=== PATIENT | female | born 1990 | race Caucasian/White ===

== ENCOUNTER → 2018-05-02 | Outpatient (CLI) | payer OTHER ==
[2018-05-02 11:34] LABS: HCG, SERUM QUANTITATIVE 146 MIU/ML
== END ==
LOC: M LAB 10:41
DX: N92.6 Irregular menstruation, unspecified (principal)
CPT/HCPCS: 84702

== ENCOUNTER → 2018-05-04 | Outpatient (CLI) | payer OTHER ==
[2018-05-04 10:44] LABS: HCG, SERUM QUANTITATIVE 451 MIU/ML
== END ==
LOC: M LAB 09:30
DX: Z32.01 Encounter for pregnancy test, result positive (principal)
CPT/HCPCS: 84702

== ENCOUNTER → 2018-05-07 | Outpatient (CLI) | payer OTHER ==
[2018-05-07 10:53] LABS: HCG, SERUM QUANTITATIVE 1499 MIU/ML
== END ==
LOC: M LAB 09:22
DX: Z32.01 Encounter for pregnancy test, result positive (principal)
CPT/HCPCS: 84702

== ENCOUNTER → 2018-07-23 | Outpatient (REF) | payer OTHER ==
[2018-07-23 14:17] LABS: CHLAMYDIA DNA AMPLIFICATION NEGATIVE (NEGATIVE); GC DNA AMPLIFICATION NEGATIVE (NEGATIVE)
== END ==
LOC: M SMT 11:24
DX: Z34.82 Encounter for supervision of other normal pregnancy, second trimester (principal)

== ENCOUNTER → 2018-08-01 | Outpatient (CLI) | payer OTHER | LOC: M RAD 07:29 | DX: Z34.82 Encounter for supervision of other normal pregnancy, second trimester (principal); Z36.89 Encounter for other specified antenatal screening; Z3A.18 18 weeks gestation of pregnancy ==

== ENCOUNTER → 2018-08-21 | Outpatient (CLI) | payer OTHER | LOC: M RAD 11:30 | DX: O26.892 Other specified pregnancy related conditions, second trimester (principal); Z3A.20 20 weeks gestation of pregnancy | CPT/HCPCS: 76816 ==

== ENCOUNTER → 2018-10-12 | Outpatient (CLI) | payer OTHER ==
[2018-10-12 16:56] LABS: GLUCOSE CHALLENGE TEST 1 HOUR 129 MG/DL (LESS THAN 140)
[2018-10-12 17:03] LABS: HEMATOCRIT 30.8 % (36.0-47.0); HEMOGLOBIN 10.2 g/dl (12.0-15.5); MEAN CORPUSCULAR HEMOGLOBIN 28.3 pg (27.0-33.0); MEAN CORPUSCULAR HGB CONC 33.1 g/dl (32.0-36.5); MEAN CORPUSCULAR VOLUME 85.3 fl (80.0-96.0); PLATELET COUNT, AUTOMATED 415 10^3/uL (150-450); RED BLOOD COUNT 3.61 10^6/uL (4.00-5.40); WHITE BLOOD COUNT 7.9 10^3/uL (4.0-10.0)
[2018-10-15 11:31] LABS: RUBELLA IgG QUALITATIVE IMMUNE (IMMUNE)
== END ==
LOC: M WUC 10:11
PROVIDERS: ATTEND Advanced Practice Midwife
DX: Z34.82 Encounter for supervision of other normal pregnancy, second trimester (principal)
CPT/HCPCS: 36415; 82950; 85027; 86762; 86803; 86850; 86900; 86901; J2790

== ENCOUNTER → 2018-12-03 | Outpatient (REF) | payer OTHER | LOC: M LAB REF 13:12 | PROVIDERS: ATTEND Advanced Practice Midwife | DX: Z34.03 Encounter for supervision of normal first pregnancy, third trimester (principal); Z3A.00 Weeks of gestation of pregnancy not specified ==

== ENCOUNTER 2019-01-04 12:23 | Inpatient (IN) | payer BC, OTHER ==
[2019-01-04] VITALS (14 sets, daily range): BP systolic 103–131; BP diastolic 51–77
[~2019-01-04] VITALS: Ht 161.3 cm; Wt 107.5 kg
[2019-01-04] MEDS ORDERED: METF500T13 PO (12:45)
[2019-01-04] MEDS ORDERED: PRENTAB9 PO (12:45)
[2019-01-04] MEDS ORDERED: LACTATED RINGER'S 1000 ML IV STA (13:22)
[2019-01-04] MEDS ORDERED: miSOPROStol 50 MCG 1/2 TAB (S0191) PO ONE (13:30)
[2019-01-04 13:38] LABS: HEMATOCRIT 33.4 % (36.0-47.0); HEMOGLOBIN 10.9 g/dl (12.0-15.5); MEAN CORPUSCULAR HEMOGLOBIN 25.9 pg (27.0-33.0); MEAN CORPUSCULAR HGB CONC 32.6 g/dl (32.0-36.5); MEAN CORPUSCULAR VOLUME 79.3 fl (80.0-96.0); PLATELET COUNT, AUTOMATED 349 10^3/uL (150-450); RED BLOOD COUNT 4.21 10^6/uL (4.00-5.40); WHITE BLOOD COUNT 11.1 10^3/uL (4.0-10.0)
--- NOTE | 2019-01-04 13:39 | HPEPDOC ---
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 Has f/u to R/O kidney involvement next week Social History Marital Status: Family situation: Spouse/partner home Psychosocial History: No pertinent psych hx * Smoker: non-smoker Alcohol: Denies Drugs: denies Imunizations Tdap status: current Allergies Coded Allergies: SEASONAL ALLERGIES (Verified Allergy, Mild, 01/04/19) Coconut (Verified Allergy, Unknown, THROAT SWELLING , 01/04/19) Medications Scheduled Metformin HCl (Metformin HCl) 500 Mg Tablet, 500 MG PO DAILY No.137/Iron/Folic Acd ( Vitamin Tablet) 1 Each Tablet, 1 TAB PO DAILY Physical Examination Physical Examination GENERAL: Alert and oriented times three. BREAST: . ABDOMEN: Gravid and non-tender to touch. FETUS: Is vertex (VTX) by sterile vaginal examination (SVE), fetus is vertex (VTX) by Thai. HEART RATE: Regular rate and rhythm. LUNGS: Clear to auscultation (CTA). EXTREMITIES: No edema. No clonus. Deep tendon reflexes (DTRs) + 2. Laboratory Data 24H [facility] Laboratory Tests 2 01/04/19 12:51: Serology Scanned Report Hepatitis B Testing Pertinent Laboratoy Data Blood Type: O- RBC Antibody Screen: Negative HIV: Negative Hepatitis B: Negative Hepatitis C: Negative Rapid Plasma Reagin: Nonreactive Rubella: Immune Chlamydia/Gonorrhea: Negative Group B Streptococcus: Positive Quad Screen Test: Negative Glucose Tolerance Test: 129 Anatomy Ultrasound Ultrasound Date: Aug 01, 2018 Placenta Location: Posterior Normal Anatomy: Yes Placenta Previa: No Estimated Weight (grams): 210 (39%) Other Ultrasounds 05/14/18 dating +FH 6w6d 06/14/18 viability 11w1d +FH 06/28/18 NT 1.4mm, FH 143 08/21/18 F/U 331gm, 21%, FH 132, limited evaluation of posterior fossa, face, outflow tracts 12/03/18 Vertex presentation Steroid Therapy Steroid Therapy: No Vaginal Examination Dilation: 2cm (-3) Effacement: 80% Station: -2 Cervical Consistency: Soft Assessment Heart Rate (FHR): 135 Variability: Moderate Accelerations: Positive Tocometer Contractions: Yes Frequency: irregular Strength: palpated as mild Assessment/Plan Assessment Brenda is a 28-year-old (G)1 para (P)0-0-0-0 at 40+2 weeks by 6-week ultrasound. Presents to Labor and Delivery (L&D) for elective induction of labor at term. has been complicated by social issues RT partner's cancer diagnosis. Denies LOF, bleeding or regular UC. Fetus is active Plan Admit and orient per consult Dr Youssef Personal Trainer and consent. Diet: Regular. Group B Streptococcus (GBS) positive, treat in labor. Labs and intravenous (IV) per unit protocol. Counseled on misoprostol, Pitocin and induction of labor (IOL). Lactated Ringers (LR): Bolus 500 mL, then saline lock. Pt plans to labor ad robert Anticipate normal spontaneous delivery (). C-S as appropriate. Lucila Ruiz CNM Jan 04, 2019 13:39
[2019-01-04] MEDS ORDERED: PENICILLIN G POTASSIUM IV 5 MU in D5W MINI-BAG PLUS 100 ML IV STA (18:53)
[2019-01-04] MEDS ORDERED: OXYTOCIN DRIP 30 UNITS in APPROPRIATE DILUENT 1 EA IV SCH (19:15)
[2019-01-04] MEDS: LR 1,000 ML IV SCH (20:04)
--- NOTE | 2019-01-04 20:13 | IPNPDOC ---
Text Note Date of Service The patient was seen on 01/04/19. NOTE Reports mild irregular UC Difficult to monitor FH due to activity. Cat I when able to monitor SVE /-1, anterior Start pitocin once reassuring strip. GBS prophylaxis ordered Consider FSE VS,Fishbone, I+O VS, Fishbone, I+O Laboratory Tests 01/04/19 13:28 Red Blood Count 4.21, Mean Corpuscular Volume 79.3 L, Mean Corpuscular Hemoglobin 25.9 L, Mean Corpuscular Hemoglobin Concent 32.6, Red Cell Distribution Width 15.4 H Vital Signs Date Time Temp Pulse Resp B/P (MAP) Pulse Ox O2 Delivery O2 Flow Rate FiO2 01/04/19 18:36 98.7 81 18 126/65 (85) Lucila Ruiz CNM Jan 04, 2019 20:13
[2019-01-04] MEDS: PENICILLIN G POTASSIUM IV 2.5 MU in APPROPRIATE DILUENT 1 EA IV SCH (22:57)
[2019-01-05] VITALS (57 sets, daily range): BP systolic 100–186; BP diastolic 56–96
--- NOTE | 2019-01-05 01:47 | IPNPDOC ---
Text Note Date of Service The patient was seen on 01/05/19. NOTE Difficult to assess FH due to habitus UC irregular SVE 3-/-2, AROM clear fluid. FSE applied. VS,Fishbone, I+O VS, Fishbone, I+O Laboratory Tests 01/04/19 13:28 Red Blood Count 4.21, Mean Corpuscular Volume 79.3 L, Mean Corpuscular Hemoglobin 25.9 L, Mean Corpuscular Hemoglobin Concent 32.6, Red Cell Distribution Width 15.4 H Vital Signs Date Time Temp Pulse Resp B/P (MAP) Pulse Ox O2 Delivery O2 Flow Rate FiO2 01/04/19 18:36 98.7 81 18 126/65 (85) I&O- Last 24 Hours up to 6 AM 01/05/19 06:00 Intake Total 500 ml Balance 500 ml Lucila Ruiz CNM Jan 05, 2019 01:47
[2019-01-05] MEDS: PENICILLIN G POTASSIUM IV 2.5 MU in APPROPRIATE DILUENT 1 EA IV SCH ×5 (03:14→19:00)
[2019-01-05] MEDS: LR 1,000 ML IV SCH ×4 (03:14→13:41)
--- NOTE | 2019-01-05 04:27 | IPNPDOC ---
Text Note Date of Service The patient was seen on 01/05/19. NOTE FH 145, minimal variability with episodes of moderate Cat I-II UC 3-5 minutes apart Pt is very tense, declines epidural at this point Pitocin off for recovery VS,Fishbone, I+O VS, Fishbone, I+O Laboratory Tests 01/04/19 13:28 Red Blood Count 4.21, Mean Corpuscular Volume 79.3 L, Mean Corpuscular Hemoglobin 25.9 L, Mean Corpuscular Hemoglobin Concent 32.6, Red Cell Distribution Width 15.4 H Vital Signs Date Time Temp Pulse Resp B/P (MAP) Pulse Ox O2 Delivery O2 Flow Rate FiO2 01/04/19 18:36 98.7 81 18 126/65 (85) I&O- Last 24 Hours up to 6 AM 01/05/19 06:00 Intake Total 500 ml Balance 500 ml Lucila Ruiz CNM Jan 05, 2019 04:27
[2019-01-05] MEDS ORDERED: LR 800 ML IV ONE (07:45)
[2019-01-05] MEDS ORDERED: FENTANYL 2MCG/ML ROPIVACAINE 0.2% IN 0.9% NACL 100ML IVBAG As Ordered ONE (07:46)
[2019-01-05] MEDS: FENTANYL/ROPIVACAINE/NACL BAG 100 ML EPIDURAL SCH ×3 (08:50→19:45)
[2019-01-05] MEDS ORDERED: EPIDURAL COMMENT XX SCH (09:30)
[2019-01-05] MEDS ORDERED: EPIDURAL/PCA KEYS XX PRN (09:30)
[2019-01-05] MEDS ORDERED: REFRIGERATOR IV KEYS XX PRN (09:30)
[2019-01-05] MEDS ORDERED: NALOXONE INJ 0.4 MG/1 ML VIAL (J2310) IV PRN (09:30)
[2019-01-05] MEDS ORDERED: diphenhydrAMINE INJ 50MG/ML VIAL (J1200) IV PRN (09:30)
[2019-01-05] MEDS ORDERED: LACTATED RINGER'S 1000 ML IV PRN (09:30)
[2019-01-05] MEDS ORDERED: ONDANSETRON 4MG/2ML VIAL (J2405) IV PRN (09:30)
[2019-01-05] MEDS: ePHEDrine SULFATE 25 MG/5 ML(5MG/ML) SYRINGE IV PRN ×3 (15:57→16:07)
[2019-01-05] MEDS ORDERED: LIDOCAINE 1% MDV 20ML VIAL As Ordered ONE (22:36)
[2019-01-06] MEDS ORDERED: DOCUSATE SODIUM 100 MG CAP PO PRN
[2019-01-06] MEDS ORDERED: OXYTOCIN DRIP 30 UNITS in APPROPRIATE DILUENT 1 EA IV ONE ×2
[2019-01-06] MEDS ORDERED: LIDOCAINE 1% MDV 20ML VIAL INFIL ONE
[2019-01-06] MEDS ORDERED: ACETAMINOPHEN 500 MG TAB PO PRN
[2019-01-06] MEDS ORDERED: RHOGAM 300 MCG (1500 IU) INJ (J2790) IM SCH
[2019-01-06] MEDS ORDERED: ONDANSETRON 4MG/2ML VIAL (J2405) IV PRN
[2019-01-06] MEDS ORDERED: METHYLERGONOVINE MALEATE 0.2 MG TAB PO PRN
[2019-01-06] MEDS ORDERED: DIBUCAINE 1% OINTMENT 30GM TOP PRN
[2019-01-06] MEDS ORDERED: MEASLES,MUMPS,RUBELLA VACCINE INJ (MMR-II) (90707) SC SCH
[2019-01-06 01:10] VITALS: BP 121/65
[2019-01-06 06:00] VITALS: BP 98/56
[2019-01-06] MEDS ORDERED: LIDOCAINE 1% MDV 20ML VIAL SC ONE (06:15)
[2019-01-06] MEDS: PRENATAL VITAMINS CHEWABLE TABLET PO SCH (07:54)
--- NOTE | 2019-01-06 10:07 | DN ---
DATE: 01/05/2019 PREDELIVERY DIAGNOSIS: 40-2/7 weeks gestation labor induction. POSTDELIVERY DIAGNOSIS: Delivered. PROCEDURE: Spontaneous vaginal delivery. ASSISTANT RESEARCH SCIENTIST: Dr. Wyatt Youssef. ANESTHESIA: Epidural. ESTIMATED BLOOD LOSS: 300 mL. FINDINGS: A 8 pound 10 ounce 3900 gram male . 7 and 9. DELIVERY SUMMARY: After a 90 minute second stage, the patient had spontaneous delivery of an 8 pound 10 ounce mal . 7 and 9 under epidural anesthesia. There was no nuchal cord. The shoulders dystocia was encountered and this was relieved by Stover maneuver. The cried spontaneously. The cord was doubly clamped and cut. The placenta delivered spontaneously and appeared to be intact. The patient received IV pitocin immediately after delivery of the placenta. Second degree peroneal laceration was repaired with 2-0 Chromic under local anesthesia in the usual fashion. Sponge and needle counts were correct.
[2019-01-06 20:00] VITALS: BP 122/58
[2019-01-06] MEDS: IBUPROFEN 800 MG TAB PO PRN (21:06)
[2019-01-07 05:54] VITALS: BP 104/54
[2019-01-07] MEDS: PRENATAL VITAMINS CHEWABLE TABLET PO SCH (07:41)
[2019-01-07] MEDS: IBUPROFEN 800 MG TAB PO PRN (07:43)
[2019-01-07] MEDS ORDERED: IBUP200C33 PO (10:07)
[2019-01-07] MEDS ORDERED: ACET-683 PO (10:07)
== END 2019-01-07 12:15 | disposition home or self-care (01) | DRG 560 ==
LOC: M LDI 12:23 → M OBS 01-06 00:45
PROVIDERS: ADMIT Advanced Practice Midwife; ATTEND Advanced Practice Midwife
PROC: 3E033VJ Introduction of Other Hormone into Peripheral Vein, Percutaneous Approach (ICD-10-PCS; 2019-01-04)
PROC: 10E0XZZ Delivery of Products of Conception, External Approach (ICD-10-PCS; principal; 2019-01-05)
PROC: 0HQ9XZZ Repair Perineum Skin, External Approach (ICD-10-PCS; 2019-01-05)
DX: O48.0 Post-term pregnancy (principal); O99.820 Streptococcus B carrier state complicating pregnancy; Z37.0 Single live birth; Z3A.40 40 weeks gestation of pregnancy; O70.1 Second degree perineal laceration during delivery

== ENCOUNTER → 2019-11-15 | Outpatient (CLI) | payer BC ==
[~2019-11-15] MED LIST: ACET-683 PO; IBUP200C33 PO; METF500T13 PO; PRENTAB9 PO
--- NOTE | 2019-11-15 11:55 | REP ---
Clinical: Pain. Tendonitis. Technique: AP and lateral views of the left foot. Findings: Osseous structures, joint spaces, and surrounding soft tissues are normal. No soft tissue calcifications are identified. No arthritic changes noted. Impression: Normal left foot radiographs. Electronically Signed by Ghanshyam Griffin MD 11/15/2019 11:47 A
== END ==
LOC: M LRY 11:26
PROVIDERS: ATTEND Physician Assistant Medical
DX: M77.52 Other enthesopathy of left foot and ankle (principal)

== ENCOUNTER → 2019-12-17 | Outpatient (REF) | payer BC | LOC: M PLALAB 09:10 | PROVIDERS: ATTEND Specialist | DX: E28.2 Polycystic ovarian syndrome (principal) ==

== ENCOUNTER → 2019-12-18 | Outpatient (REF) | payer BC ==
[2019-12-18 14:06] LABS: FREE T4 0.93 NG/DL (0.76-1.46); THYROID STIMULATING HORMONE 1.89 uIU/ML (0.358-3.740)
[2019-12-18 14:07] LABS: FOLLICLE STIMULATING HORMONE 6.8 mIU/mL; LUTEINIZING HORMONE 8.5 mIU/mL
[2019-12-20 00:06] LABS: INSULIN LEVEL 74.9 uIU/mL (2.6-24.9); TESTOSTERONE FREE (DIRECT) 4.8 pg/mL (0.0-4.2)
== END ==
LOC: M PLALAB 11:01
PROVIDERS: ATTEND Specialist
DX: E28.2 Polycystic ovarian syndrome (principal)

== ENCOUNTER → 2019-12-31 | Outpatient (REF) | payer BC | LOC: M PLALAB 11:37 | PROVIDERS: ATTEND Specialist | DX: E28.2 Polycystic ovarian syndrome (principal) ==

== ENCOUNTER → 2020-01-07 | Outpatient (REF) | payer BC | LOC: M PLALAB 08:22 | PROVIDERS: ATTEND Specialist | DX: E28.2 Polycystic ovarian syndrome (principal) ==

== ENCOUNTER → 2020-01-07 | Outpatient (CLI) | payer BC ==
[2020-01-07 10:16] LABS: FOLLICLE STIMULATING HORMONE 7.4 mIU/mL; FREE T4 0.96 NG/DL (0.76-1.46); LUTEINIZING HORMONE 7.4 mIU/mL; PROLACTIN 6.4 NG/ML; THYROID STIMULATING HORMONE 2.43 uIU/ML (0.358-3.740)
[2020-01-07 10:26] LABS: HEMOGLOBIN A1c 6.1 %
[2020-01-09 00:13] LABS: INSULIN LEVEL 20.7 uIU/mL (2.6-24.9); TESTOSTERONE FREE (DIRECT) 7.1 pg/mL (0.0-4.2)
== END ==
LOC: M LAB 08:38
PROVIDERS: ATTEND Specialist
DX: E28.2 Polycystic ovarian syndrome (principal)

== ENCOUNTER → 2020-09-09 | Outpatient (REF) | payer BC ==
[2020-09-09 14:09] LABS: GLUCOSE CHALLENGE TEST 1 HOUR 111 MG/DL (LESS THAN 140)
[2020-09-09 14:10] LABS: HEMATOCRIT 38.5 % (36.0-47.0); HEMOGLOBIN 12.4 g/dl (12.0-15.5); MEAN CORPUSCULAR HEMOGLOBIN 28.4 pg (27.0-33.0); MEAN CORPUSCULAR HGB CONC 32.2 g/dl (32.0-36.5); MEAN CORPUSCULAR VOLUME 88.1 fl (80.0-96.0); PLATELET COUNT, AUTOMATED 317 10^3/uL (150-450); RED BLOOD COUNT 4.37 10^6/uL (4.00-5.40)
[2020-09-09 14:45] LABS: HEMOGLOBIN A1c 5.7 %
[2020-09-09 15:07] LABS: HEPATITIS C VIRUS ABY INDEX 0.1 INDEX (<0.8); HIV 1&2 SCREEN CENTAUR NEGATIVE (NEGATIVE)
== END ==
LOC: M PLALAB 10:04
PROVIDERS: ATTEND Obstetrics & Gynecology
DX: Z3A.01 Less than 8 weeks gestation of pregnancy (principal)

== ENCOUNTER → 2020-10-19 | Outpatient (CLI) | payer BC | LOC: M PLALAB 11:32 | PROVIDERS: ATTEND Advanced Practice Midwife | DX: Z34.82 Encounter for supervision of other normal pregnancy, second trimester (principal); Z3A.00 Weeks of gestation of pregnancy not specified ==

== ENCOUNTER → 2020-10-27 | Outpatient (CLI) | payer BC ==
--- NOTE | 2020-10-27 16:26 | REP ---
INDICATION: ANATOMY COMPARISON: None. TECHNIQUE: Transabdominal obstetrical ultrasound with color Doppler evaluation. FINDINGS: Examination demonstrates a single live intrauterine in breech presentation. motion is identified by technologist. Placenta is noted anterior and grade 1 without evidence for placenta previa or abruption. Amniotic fluid volume is normal. Cervix measures 3.1 cm in length and appears closed.. Gestational age by current measurements 18 weeks 1 day with HALEY 03/29/2021. FHR equals 163 beats per minute. BPD: 3.8 cm 17 weeks 5 days HC: 15.5 cm 18 weeks 3 days AC: 12.1 cm 17 weeks 5 days FL: 2.7 cm 18 weeks 2 days HL: 2.7 cm 18 weeks 5 days HC/AC: 1.28 Estimated weight 220 grams (37thpercentile). Anatomical assessment demonstrates normal structures including cranium, choroid plexus, cavum, cerebellum/posterior fossa, lungs, ventricular outflow tracts, diaphragm, stomach, cord insertion/three-vessel cord, kidneys/bladder, spine, and extremities. IMPRESSION: Single live intrauterine in breech presentation demonstrating appropriate estimated weight. Limited evaluation of the facial features and four-chamber heart view warrants re-evaluation and follow-up. <Electronically signed by Ghanshyam Griffin > 10/27/20 [id number]
== END ==
LOC: M WHC 08:59
PROVIDERS: ATTEND Advanced Practice Midwife
DX: O32.1XX0 Maternal care for breech presentation, not applicable or unspecified (principal); Z3A.18 18 weeks gestation of pregnancy

== ENCOUNTER → 2020-11-16 | Outpatient (CLI) | payer BC | LOC: M WHC 08:23 | PROVIDERS: ATTEND Obstetrics & Gynecology | DX: Z34.82 Encounter for supervision of other normal pregnancy, second trimester (principal); Z3A.21 21 weeks gestation of pregnancy; Z53.9 Procedure and treatment not carried out, unspecified reason ==

== ENCOUNTER 2020-11-20 16:41 | Outpatient (CLI) | payer BC ==
[~2020-11-20] VITALS: Ht 160 cm; Wt 100.4 kg
[2020-11-20 17:06] VITALS: BP 118/56
--- NOTE | 2020-11-20 17:36 | IPNPDOC ---
Text Note Date of Service The patient was seen on 11/20/20. NOTE Outpatient 30yo HALEY 03/27/2021. Presents at 21w6d with reports of bleeding on wipe x 3 today. Denies recent IC, no cramping, no LOF. No apparent distress FH 145-150 No Uterine activity. Spec exsm - cervix visually LTC, no bleeding noted. Moderate creamy white discharge pH 4.5, moderate hyphae, neg clue, neg amines TVUS ordered. Urine for C&S. rec monistat 7 as directed. Lucila Ruiz CNM Nov 20, 2020 17:36
--- NOTE | 2020-11-20 18:24 | REPVR ---
PROCEDURE INFORMATION: Exam: US , Limited Exam date and time: 11/20/2020 5:57 PM Age: 30 years old Clinical indication: Lmp or gestational age (in weeks): 21 weeks 6 days; Other: Spotting; ; Additional info: 2nd trimester spotting TECHNIQUE: Imaging protocol: Real-time ultrasound of the maternal uterus with image documentation. Exam focused on the clinical indication. COMPARISON: OBS COMPLETE US 10/27/2020 9:20 AM FINDINGS: Gestation: Single intrauterine gestation. presentation: Cephalic heart rate: 152 bpm Placenta: Anterior and free of the cervical os. No retroplacental hemorrhage Amniotic fluid index: Amniotic fluid index = 14.8 cm MATERNAL: Cervix: Measures 3.6 cm in length and appeared closed at the time of the examination. Right adnexa: Right ovary not seen as a separate structure. Left adnexa: Left ovary not seen as a separate structure IMPRESSION: 1. Single live intrauterine gestation. No retroplacental hemorrhage. Normal amniotic fluid index. 2. biometry not performed Electronically signed by: Jaimee Barrios On 11/20/2020 18:25:18 PM
--- NOTE | 2020-11-20 18:26 | REPVR ---
PROCEDURE INFORMATION: Exam: US , Transvaginal Exam date and time: 11/20/2020 5:57 PM Age: 30 years old Clinical indication: Lmp or gestational age (in weeks): 21 weeks 6 days; Other: Spotting; ; Additional info: 2nd trimester spotting, cervical length, placenta TECHNIQUE: Imaging protocol: Real-time transvaginal obstetrical ultrasound of the maternal pelvis and a first trimester with image documentation. Transvaginal imaging was used for better evaluation of the fetus, adnexa, and/or cervix. COMPARISON: Obs. Limited, SPENCER US 11/20/2020 5:42 PM FINDINGS: Gestation: Single Intrauterine gestation. presentation: Cephalic MATERNAL: Cervix: 3.5 cm in length and closed at the time of the examination. No change in the length of the cervix noted with or without fundal pressure IMPRESSION: 1. Single intrauterine gestation. 2. The cervix is closed with no evidence of effacement. No change in cervical length with fundal pressure. Electronically signed by: Jaimee Barrios On 11/20/2020 18:27:02 PM
[2020-11-20 19:07] VITALS: BP 109/59
--- NOTE | 2020-11-20 19:40 | IPNPDOC ---
Text Note Date of Service The patient was seen on 11/20/20. NOTE Ultrasound reassuring. No evidence of hemorrhage Cervix 3.6cm, closed. No evidence low lying placenta SPENCER 14.8cm heart 150's -160's Pt is reassured. Discharged home. Rec monistat 7. Keep next appt VS,Fishbone, I+O VS, Fishbone, I+O Vital Signs Date Time Temp Pulse Resp B/P (MAP) Pulse Ox O2 Delivery O2 Flow Rate FiO2 11/20/20 19:07 99.4 73 18 109/59 (76) 98 Room Air Lucila Ruiz CNM Nov 20, 2020 19:40
== END 2020-11-20 19:43 | disposition home or self-care (01) ==
LOC: M LDO 16:41
PROVIDERS: ATTEND Advanced Practice Midwife
DX: O26.852 Spotting complicating pregnancy, second trimester (principal); Z3A.21 21 weeks gestation of pregnancy; Z91.018 Allergy to other foods
CPT/HCPCS: 59025; 76815; 76817; 87086; G0378; G0463

== ENCOUNTER → 2020-12-01 | Outpatient (CLI) | payer BC ==
--- NOTE | 2020-12-01 10:31 | REP ---
INDICATION: F/U ANATOMY. COMPARISON: Comparison imaging November 20, 2020. Comparison study October 27, 2020.. TECHNIQUE: Transabdominal obstetric sonography. FINDINGS: Scanning through the gravid uterus demonstrates a viable single intrauterine gestation in breech lie. motion is observed and heart rate is recorded at 155 beats per minute. A anterior placenta is seen, grade 1, without evidence of placenta previa. Closed cervical length is measured at 3.3 cm transabdominally. No extrauterine abnormality is observed. Amniotic fluid is subjectively normal. An echogenic focus is again identified in the left ventricle. No other abnormality is observed. The following anatomic structures are identified today and felt to be unremarkable: Face and profile, nose and lips, urinary bladder, three-vessel cord. Four-chamber heart view is otherwise unremarkable.. Biometry chart: BPD 5.4 cm, 22 weeks 4 days Head circumference 21.5 cm, 23 weeks 4 days Abdominal circumference 19.5 cm, 24 weeks 1 day Femur length 3.9 cm, 22 weeks 4 days Humeral length 4.0 cm, 24 weeks 1 day HC AC ratio normal 1.10 Cephalic index normal 0.68 Estimated weight 601 g, 1 lb 5 oz, 60th percentile for 23 weeks 1 day IMPRESSION: Viable single intrauterine gestation at 23 weeks 3 days by today's composite sonographic criteria. HALEY by today's sonography March 27, 2021. No complication identified. Expected gestational age estimate based on prior sonography is 23 weeks 1 day HALEY by prior sonography March 29, 2021. In conjunction with the prior study, anatomic survey is felt to be complete. 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 <Electronically signed by Ellis Cho > 12/01/20 1024
== END ==
LOC: M WHC 08:29
PROVIDERS: ATTEND Obstetrics & Gynecology
DX: Z34.92 Encounter for supervision of normal pregnancy, unspecified, second trimester (principal); Z3A.23 23 weeks gestation of pregnancy

== ENCOUNTER → 2020-12-14 | Outpatient (REF) | payer BC | LOC: M PLALAB 10:02 | PROVIDERS: ATTEND Obstetrics & Gynecology | DX: Z3A.25 25 weeks gestation of pregnancy (principal) ==

== ENCOUNTER → 2020-12-25 | Outpatient (REF) | payer BC ==
[2020-12-25 15:19] LABS: HEMATOCRIT 35.9 % (36.0-47.0); HEMOGLOBIN 11.6 g/dl (12.0-15.5); MEAN CORPUSCULAR HEMOGLOBIN 28.5 pg (27.0-33.0); MEAN CORPUSCULAR HGB CONC 32.3 g/dl (32.0-36.5); MEAN CORPUSCULAR VOLUME 88.2 fl (80.0-96.0); PLATELET COUNT, AUTOMATED 373 10^3/uL (150-450); RED BLOOD COUNT 4.07 10^6/uL (4.00-5.40); WHITE BLOOD COUNT 10.3 10^3/uL (4.0-10.0)
== END ==
LOC: M PLALAB 11:38
PROVIDERS: ATTEND Obstetrics & Gynecology
DX: Z36.89 Encounter for other specified antenatal screening (principal); Z3A.35 35 weeks gestation of pregnancy

== ENCOUNTER → 2020-12-29 | Outpatient (REF) | payer BC | LOC: M PLALAB 08:30 | PROVIDERS: ATTEND Obstetrics & Gynecology | DX: O99.810 Abnormal glucose complicating pregnancy (principal) ==

== ENCOUNTER → 2020-12-30 | Outpatient (REF) | payer BC | LOC: M PLALAB 09:06 | PROVIDERS: ATTEND Obstetrics & Gynecology | DX: O99.810 Abnormal glucose complicating pregnancy (principal); Z3A.00 Weeks of gestation of pregnancy not specified ==

== ENCOUNTER → 2020-12-31 | Outpatient (REF) | payer BC | LOC: M PLALAB 13:34 | PROVIDERS: ATTEND Obstetrics & Gynecology | DX: R73.09 Other abnormal glucose (principal); Z53.9 Procedure and treatment not carried out, unspecified reason ==

== ENCOUNTER → 2021-01-28 | Outpatient (CLI) | payer BC ==
--- NOTE | 2021-01-28 11:57 | REP ---
INDICATION: STAT BPP,INCONCLUSIVE NST. HALEY March 29, 2021. Thirty-one weeks 3 days gestation. COMPARISON: Comparison study January 20, 2021.. TECHNIQUE: Transabdominal obstetric sonography, limited exam. FINDINGS: Scanning through the gravid uterus demonstrates a viable single intrauterine gestation in a cephalic lie. heart rate is recorded at 156 beats per minute. And anterior grade 2 placenta is seen without evidence of placenta previa. Amniotic fluid is subjectively normal. SPENCER is normal at 12.5 cm. Biophysical profile score is 8 out of a possible 8. SD ratio in the umbilical cord artery by Doppler is normal at 2.00. Closed cervical length is 3.3 cm. heart rate of the a end of the examination was recorded at 156 beats per minute. IMPRESSION: Limited obstetric sonography as above. <Electronically signed by Ellis Cho > 01/28/21 [id number]
== END ==
LOC: M WHC 10:33
PROVIDERS: ATTEND Advanced Practice Midwife
DX: O24.313 Unspecified pre-existing diabetes mellitus in pregnancy, third trimester (principal); Z3A.31 31 weeks gestation of pregnancy

== ENCOUNTER → 2021-01-28 | Outpatient (REF) | payer BC ==
[2021-01-28 16:14] LABS: HEMOGLOBIN A1c 5.6 %
== END ==
LOC: M PLALAB 11:17
PROVIDERS: ATTEND Advanced Practice Midwife
DX: O24.319 Unspecified pre-existing diabetes mellitus in pregnancy, unspecified trimester (principal); Z3A.00 Weeks of gestation of pregnancy not specified

== ENCOUNTER → 2021-02-03 | Outpatient (CLI) | payer BC ==
--- NOTE | 2021-02-05 01:50 | REP ---
INDICATION: GROWTH/HALEY 03/27/21/BPP COMPARISON: 01/28/2021 TECHNIQUE: Transabdominal obstetrical ultrasound with color Doppler evaluation. FINDINGS: Examination demonstrates a single live intrauterine in cephalic presentation. motion is identified by technologist. Placenta is noted anterior and grade 2 without evidence for placenta previa or abruption. Amniotic fluid volume is normal. Cervix measures 3.3 cm in length and appears closed.. Gestational age by LMP 32 weeks 4 days with HALEY 03/27/2021. Gestational age by 1st ultrasound 32 weeks 2 days with HALEY 03/29/2021. FHR equals 146 beats per minute. Biophysical profile score: 8/8 Amniotic fluid index: 17.3 cm Umbilical artery SD ratio: 2.32 (1.83-3.84) IMPRESSION: Single live advanced gestation in cephalic presentation. Biophysical profile score and amniotic fluid volume are normal. <Electronically signed by Ghanshyam Griffin > 02/05/21 [id number]
== END ==
LOC: M WHC 11:06
PROVIDERS: ATTEND Advanced Practice Midwife
DX: O24.419 Gestational diabetes mellitus in pregnancy, unspecified control (principal); O24.319 Unspecified pre-existing diabetes mellitus in pregnancy, unspecified trimester; N64.9 Disorder of breast, unspecified

== ENCOUNTER → 2021-02-04 | Outpatient (REF) | payer BC | LOC: M SFHCWAGY 17:19 | PROVIDERS: ATTEND Surgery | DX: L82.1 Other seborrheic keratosis (principal) ==

== ENCOUNTER → 2021-02-05 | Outpatient (REF) | payer BC | LOC: M PLALAB 09:22 | PROVIDERS: ATTEND Obstetrics & Gynecology | DX: Z67.91 Unspecified blood type, Rh negative (principal) | CPT/HCPCS: 36415; 86850; 86900; 86901; J2790 ==

== ENCOUNTER → 2021-02-10 | Outpatient (CLI) | payer BC ==
--- NOTE | 2021-02-10 10:55 | REP ---
INDICATION: BPP/GROWTH/HALEY 03/27/21 COMPARISON: 02/03/2021 TECHNIQUE: Transabdominal obstetrical ultrasound with color Doppler evaluation. FINDINGS: Examination demonstrates a single live intrauterine in cephalic presentation. motion is identified by technologist. Placenta is noted anterior and grade 2 without evidence for placenta previa or abruption. Amniotic fluid volume is normal. Cervix appears closed.. Gestational age by 1st U/S 33 weeks 2 days with HALEY 03/29/2021. Gestational age by current measurements 33 weeks 4 days with HALEY 03/27/2021. FHR equals 150 beats per minute. SPENCER: 11.0 cm Biophysical profile score: 8/8 Estimated weight 2164 grams (42ndpercentile). Umbilical artery SD ratio: 2.00 (1.77-3.74) IMPRESSION: Single live advanced gestation in cephalic presentation demonstrating appropriate estimated weight. Amniotic fluid volume and biophysical profile score are normal. <Electronically signed by Ghanshyam Griffin > 02/10/21 [id number]
== END ==
LOC: M WHC 09:54
PROVIDERS: ATTEND Advanced Practice Midwife
DX: O24.419 Gestational diabetes mellitus in pregnancy, unspecified control (principal)

== ENCOUNTER → 2021-02-17 | Outpatient (CLI) | payer BC ==
--- NOTE | 2021-02-17 12:34 | REP ---
INDICATION: DIABETES/BPP COMPARISON: 02/10/2021 TECHNIQUE: Transabdominal obstetrical ultrasound with color Doppler evaluation. FINDINGS: Examination demonstrates a single live intrauterine in cephalic presentation. motion is identified by technologist. Placenta is noted anterior and grade 2 without evidence for placenta previa or abruption. Amniotic fluid volume is normal. Cervix measures 3.0 cm in length and appears closed.. Gestational age by 1st ultrasound 34 weeks 2 days with HALEY 03/29/2021 FHR equals 170 beats per minute. SPENCER: 12.3 cm Biophysical profile score: 8/8 Umbilical artery SD ratio: 2.34, 1.98 (1.72-3.65) IMPRESSION: Single live advanced gestation in cephalic presentation demonstrating appropriate amniotic fluid index and biophysical profile score. <Electronically signed by Ghanshyam Griffin > 02/17/21 [id number]
== END ==
LOC: M WHC 10:46
PROVIDERS: ATTEND Advanced Practice Midwife
DX: O24.319 Unspecified pre-existing diabetes mellitus in pregnancy, unspecified trimester (principal); Z3A.00 Weeks of gestation of pregnancy not specified

== ENCOUNTER → 2021-02-24 | Outpatient (CLI) | payer BC ==
--- NOTE | 2021-02-24 10:29 | REP ---
INDICATION: BPP/DIABETES/HALEY 03/27/21 COMPARISON: 02/17/2021 TECHNIQUE: Transabdominal obstetrical ultrasound with color Doppler evaluation. FINDINGS: Examination demonstrates a single live intrauterine in cephalic presentation. motion is identified by technologist. Placenta is noted anterior and grade 3 without evidence for placenta previa or abruption. Amniotic fluid volume is normal. Cervix appears closed.. Gestational age by 1st U/S 35 weeks 2 days with HALEY 03/29/2021. FHR equals 163 beats per minute. Biophysical profile score: 8/8 SPENCER: 9.8 cm Umbilical artery SD ratio: 1.96 (1.67-3.57) IMPRESSION: Single live advanced gestation in cephalic presentation. Amniotic fluid index and biophysical profile score are normal. <Electronically signed by Ghanshyam Griffin > 02/24/21 [id number]
== END ==
LOC: M WHC 08:51
PROVIDERS: ATTEND Advanced Practice Midwife
DX: O24.319 Unspecified pre-existing diabetes mellitus in pregnancy, unspecified trimester (principal); Z3A.00 Weeks of gestation of pregnancy not specified; Z79.84 Long term (current) use of oral hypoglycemic drugs

== ENCOUNTER → 2021-02-26 | Outpatient (REF) | payer BC | LOC: M SFHCWAGY 12:10 | PROVIDERS: ATTEND Advanced Practice Midwife | DX: O24.419 Gestational diabetes mellitus in pregnancy, unspecified control (principal) ==

== ENCOUNTER → 2021-03-03 | Outpatient (CLI) | payer BC ==
--- NOTE | 2021-03-03 10:53 | REP ---
INDICATION: GESTATIONAL DIABETES,GROWTH,BPP COMPARISON: 02/24/2021 TECHNIQUE: Transabdominal obstetrical ultrasound with color Doppler evaluation. FINDINGS: Examination demonstrates a single live intrauterine in cephalic presentation. motion is identified by technologist. Placenta is noted anterior and grade 2 without evidence for placenta previa or abruption. Amniotic fluid volume is normal. Cervix measures 3.5 cm in length and appears closed. There is. Selected gestational age: 36 weeks 2 days with HALEY 03/29/2021. Gestational age by current measurements 36 weeks 4 days with HALEY 03/27/2021. Estimated weight: 2995 g (68th percentile) FHR equals 160 beats per minute. PSENCER: 13.7 cm (7.6-24.8) Biophysical profile score: 8/8 Umbilical artery SD ratio: 3.05, 2.71 (1.63 - 3.49) IMPRESSION: Single live intrauterine in cephalic presentation demonstrating appropriate interval growth. Amniotic fluid index and biophysical profile score are normal. <Electronically signed by Ghanshyam Griffin > 03/03/21 [id number]
== END ==
LOC: M WHC 09:58
PROVIDERS: ATTEND Advanced Practice Midwife
DX: O24.319 Unspecified pre-existing diabetes mellitus in pregnancy, unspecified trimester (principal)

== ENCOUNTER → 2021-03-10 | Outpatient (CLI) | payer BC ==
--- NOTE | 2021-03-11 09:08 | REP ---
INDICATION: BPP/DIABETES COMPARISON: 03/03/2021 TECHNIQUE: Transabdominal obstetrical ultrasound with color Doppler evaluation. FINDINGS: Examination demonstrates a single live intrauterine in cephalic presentation. motion is identified by technologist. Placenta is noted anterior and grade 2 without evidence for placenta previa or abruption. Amniotic fluid volume is normal. Cervix measures 3.4 cm in length and appears closed.. Selected gestational age: 37 weeks 2 days with HALEY 03/29/2021. FHR equals 150 beats per minute. SPENCER: 16.4 cm Biophysical profile score: 8/8 Umbilical artery SD ratio: 2.10, 1.75 (1.58-3.41) IMPRESSION: Single live advanced gestation in cephalic presentation. Amniotic fluid volume and biophysical profile score are normal. <Electronically signed by Ghanshyam Griffin > 03/11/21 09
== END ==
LOC: M WHC 10:02
PROVIDERS: ATTEND Advanced Practice Midwife
DX: O24.313 Unspecified pre-existing diabetes mellitus in pregnancy, third trimester (principal); Z3A.37 37 weeks gestation of pregnancy

== ENCOUNTER 2021-03-12 11:23 | Outpatient (CLI) | payer BC ==
[~2021-03-12] VITALS: Ht 160 cm; Wt 104.4 kg
[2021-03-12 11:49] VITALS: BP 119/76
[2021-03-12] MEDS ORDERED: METF500T13 PO (12:18)
--- NOTE | 2021-03-12 12:35 | IPNPDOC ---
Text Note Date of Service The patient was seen on 03/12/21. NOTE Outpatient 30yo HALEY 03/27/2021. Presents from office @ 37w6d for monitoring. NST in office showed prolonged tachycardia No distress, VSS Cat I tracing Rare mild UC not perceive by patient. Discharged home. Instructed to make appt for next week. Scheduled for IOL next Monday. After hours access, VASQUEZ, daily [facility], warnings reviewed. VS,Fishbone, I+O VS, Fishbone, I+O Vital Signs Date Time Temp Pulse Resp B/P (MAP) Pulse Ox O2 Delivery O2 Flow Rate FiO2 03/12/21 11:49 99.3 92 18 119/76 (90) Lucila Ruiz CNM Mar 12, 2021 12:35
== END 2021-03-12 12:43 | disposition home or self-care (01) ==
LOC: M LDO 11:23
PROVIDERS: ATTEND Advanced Practice Midwife
DX: O36.8330 Maternal care for abnormalities of the fetal heart rate or rhythm, third trimester, not applicable or unspecified (principal); Z3A.37 37 weeks gestation of pregnancy; Z79.84 Long term (current) use of oral hypoglycemic drugs

== ENCOUNTER → 2021-03-15 | Outpatient (CLI) | payer BC | LOC: M LABSMTC 13:53 | PROVIDERS: ATTEND Specialist | DX: Z20.822 Contact with and (suspected) exposure to COVID-19 (principal) ==

== ENCOUNTER → 2021-03-17 | Outpatient (CLI) | payer BC ==
--- NOTE | 2021-03-17 13:16 | REP ---
INDICATION: DIABETES,BPP. COMPARISON: Comparison study March 10, 2021.. TECHNIQUE: Transabdominal obstetric sonography. Limited exam. FINDINGS: Scanning demonstrates a viable single intrauterine gestation in a cephalic lie. heart rate is recorded at 165 beats per minute. An anterior grade 3 placenta is seen without evidence of previa. Amniotic fluid is subjectively normal. SPENCER is normal at 13.3 cm. Biophysical profile score is 8 out of a possible 8. The SD ratio in the umbilical cord artery by Doppler is normal at 1.96. IMPRESSION: Limited obstetric sonography as above. Biophysical profile score 8 out of a possible 8. <Electronically signed by Ellis Cho > 03/17/21 [id number]
== END ==
LOC: M WHC 09:49
PROVIDERS: ATTEND Advanced Practice Midwife
DX: O24.319 Unspecified pre-existing diabetes mellitus in pregnancy, unspecified trimester (principal)

== ENCOUNTER 2021-03-19 12:14 | Inpatient (IN) | payer BC ==
[~2021-03-19] VITALS: Ht 160 cm; Wt 104.2 kg
[2021-03-19] VITALS (8 sets, daily range): BP systolic 115–141; BP diastolic 63–82
[2021-03-19] MEDS: LACTATED RINGER'S 1000 ML IV STA ×2 (12:34→16:04)
[2021-03-19] MEDS ORDERED: LR 1,000 ML IV SCH ×2 (12:35→16:50)
[2021-03-19] MEDS ORDERED: OXYTOCIN DRIP 30 UNITS in IV 1 EA IV PRN (12:35)
[2021-03-19] MEDS ORDERED: METHYLERGONOVINE MALEATE 0.2 MG/ML VIAL (J2210) IM PRN (12:35)
[2021-03-19] MEDS ORDERED: LIDOCAINE 1% MDV 20ML VIAL INFIL PRN (12:35)
[2021-03-19 13:17] LABS: HEMATOCRIT 34.4 % (36.0-47.0); HEMOGLOBIN 11.2 g/dl (12.0-15.5); MEAN CORPUSCULAR HGB CONC 32.6 g/dl (32.0-36.5); MEAN CORPUSCULAR VOLUME 82.9 fl (80.0-96.0); PLATELET COUNT, AUTOMATED 340 10^3/uL (150-450); RED BLOOD COUNT 4.15 10^6/uL (4.00-5.40); WHITE BLOOD COUNT 8.8 10^3/uL (4.0-10.0)
[2021-03-19 13:44] LABS: ALBUMIN 2.7 GM/DL (3.2-5.2); ALT/SGPT 18 U/L (12-78); BILIRUBIN,TOTAL 0.2 MG/DL (0.2-1.0); BLOOD UREA NITROGEN 8 MG/DL (7-18); CALCIUM LEVEL 8.6 MG/DL (8.5-10.1); CARBON DIOXIDE LEVEL 22 MEQ/L (21-32); CHLORIDE LEVEL 108 MEQ/L (98-107); GLOMERULAR FILTRATION RATE > 60.0 (>60); GLUCOSE, FASTING 99 MG/DL (70-100); POTASSIUM SERUM 4.1 MEQ/L (3.5-5.1); SODIUM LEVEL 140 MEQ/L (136-145); TOTAL PROTEIN 6.2 GM/DL (6.4-8.2)
--- NOTE | 2021-03-19 15:27 | HPEPDOC ---
Obstetrical History & Physical General Date of Admission Mar 19, 2021 at 12:14 History of Present Illness Chief Complaint: Induction of labor (vs primary ) Information Provided By: Patient Age: 30 : 2 Term: 1 Pre-term: 0 Abortions: 0 Livin Care Care: Good Care Dating Final EDC: Mar 27, 2021 EGA at Admission: 38 (+6) Antepartum Course Pre- weight (lbs.): 218 Admission Weight (lbs.): 230 Past Medical History Past Obstetrical History : Past Obstetrical History: Primgravida (2018) Type of Delivery: Spontaneous Vaginal Del. Sex of Infant: Female (8#10) Complications: Yes (shoulder dystocia) [employer] History: No pertinent history Past Medical History Medical History PCOS, prediabetic, COVID + during Surgical History: Gallbladder Family History Significant Family History: Asthma, Cancer, COPD, Diabetes, Heart disease, Hypertension Social History Marital Status: Family situation: Spouse/partner home Psychosocial History: No pertinent psych hx * Smoker: non-smoker Alcohol: Denies Drugs: denies Imunizations Tdap status: current Influenza Status: current Allergies Coded Allergies: SEASONAL ALLERGIES (Verified Allergy, Mild, 03/19/21) Medications Scheduled Metformin HCl (Metformin HCl) 500 Mg Tablet, 1,000 MG PO DAILY Metformin HCl (Metformin HCl) 500 Mg Tablet, 1 TAB PO ACS No.137/Iron/Folic Acd ( Vitamin Tablet) 1 Each Tablet, 1 TAB PO DAILY Physical Examination Physical Examination GENERAL: Alert and oriented times three. BREAST: . ABDOMEN: Gravid and non-tender to touch. FETUS: Is vertex (VTX) by sterile vaginal examination (SVE), fetus is vertex (VTX) by Thai. EFW 8# HEART RATE: Regular rate and rhythm. LUNGS: Clear to auscultation (CTA). EXTREMITIES: No edema. No clonus. Deep tendon reflexes (DTRs) + 2. Laboratory Data 24H LABS Laboratory Tests 2 03/19/21 12:26: Serology Scanned Report Hepatitis B Testing Pertinent Laboratoy Data Blood Type: O- RBC Antibody Screen: Negative HIV: Negative Hepatitis B: Negative Hepatitis C: Negative Rapid Plasma Reagin: Nonreactive Rubella: Immune Chlamydia/Gonorrhea: Negative Group B Streptococcus: Positive Glucose Tolerance Test: 142 (elected to treat as diabetic vs 3hr GTT) Anatomy Ultrasound Ultrasound Date: Dec 01, 2020 (EGA 23w3d) Placenta Location: Anterior Normal Anatomy: Yes Placenta Previa: No Estimated Weight (grams): 601 (60%) Other Ultrasounds 08/24/2020 9w2d cw LMP 10/27/2020 Breech, anterior placenta, no previa 18w1d, normal fluid 11/20/2020 TVUS Cervix 3.5cm closed, no previa 01/20/2021 Breech, 30w2d, SPENCER 12.0. 1566gm 41% 01/28/2021 BPP 8/8 02/03/2021 BPP 8/8, cephalic, 32w4d, SPENCER 17.3, S/D 2.32 02/10/2021 BPP 8/8, cephalic, 33w4d, SPENCER 11.0, 2164gm 42% 02/17/2021 BPP 8/8, cephalic, SPENCER 12.3 S/D 2.34, 1.98 02/24/2021 BPP 8/8, cephalic, SPENCER 9.8. S/D 1.96 03/03/2021 BPP 8/8, cephalic, 36w4d 2995gm 68% S/D 3.05, 2.71 03/10/2021 BPP 8/8, cephalic, 37w2d SPENCER 16.4 S/D 2.10, 1.75 03/17/2021 BPP 8/8, cephalic SPENCER 13.3, S/D 1.96 Steroid Therapy Steroid Therapy: No Vaginal Examination Dilation: 2cm Effacement: 50% Station: -3 Cervical Consistency: Medium Cervical Position: Posterior Presentation: Cephalic presentation Assessment Heart Rate (FHR): 150 Variability: Moderate Accelerations: Positive Decelerations: None Tocometer Contractions: No Assessment/Plan Assessment Brenda is a 30-year-old (G)2 para (P)1-0-0-1 at 38+6 weeks by 9-week ultrasound. Presents to Labor and Delivery (L&D) for either IOL or due gestational diabetes depending on growth sono today. EFW today 3518gm (3004-4013gm). Previous infant 3900gm. Patient and partner are considering options. Both are concerned about repeat dystocia experience . Plan Admit and orient. 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 Diet: clear liquids. Group B Streptococcus (GBS) positive. Labs and intravenous (IV) per unit protocol. Counseled on misoprostol, Pitocin and induction of labor (IOL). Lactated Ringers (LR): Bolus 500 mL, then at 125 mL/hr. Decision re: mode of delivery pending. Lucila Ruiz CNM Mar 19, 2021 13:10
--- NOTE | 2021-03-19 15:31 | REP ---
INDICATION: Growth. COMPARISON: 03/17/2021. TECHNIQUE: Real-time sonographic evaluation of the gravid uterus performed. FINDINGS: Estimated gestational age is38 weeks 6 days, EDC 03/27/2021. Today's measurements indicate appropriate growth. Presentation: Cephalic Placenta anterior, grade 3, without evidence of placenta previa. heart rate is recorded at 163 beats per minute. Amniotic fluid is subjectively normal. SPENCER 8.6, normal range 7.2-22.7. The cervix is not visualized due to shadowing from the cranium. Biometry chart: BPD: 94 mm, 38 weeks 3 days, 43rd percentile. HC: 345 mm, 39 weeks 6 days, 66th percentile AC: 343 mm, 38 weeks 1 days, 39th percentile Femur length: 76 mm, 38 weeks 5 days, 47th percentile HC to AC ratio: 1.01, normal range 0.90-1.09. Estimated weight: 3518g, 75th percentile. SD ratio umbilical artery 2.06, normal 1.51-3.30. RI 0.51, normal range 0.41-0.69. The visualized anatomy includes four-chamber heart, stomach, kidneys and bladder. Echogenic focus is again seen in the left ventricle likely related to chordae tendineae. IMPRESSION: Viable single intrauterine gestation as above. <Electronically signed by Tesfaye Downs > 03/19/21 [id number]
--- NOTE | 2021-03-19 15:56 | IPNPDOC ---
Text Note Date of Service The patient was seen on 03/19/21. NOTE Progress Long discussion with patient and partner. Have decided they want a section. NPO. Last solids 1130am. Cat I tracing Will update Dr Youssef. Amy PATTERSON, I+O Amy PATTERSON, I+O Laboratory Tests 03/19/21 12:58 Vital Signs Date Time Temp Pulse Resp B/P (MAP) Pulse Ox O2 Delivery O2 Flow Rate FiO2 03/19/21 12:46 98.1 108 18 116/69 (85) Room Air Lucila Ruiz CNM Mar 19, 2021 15:56
[2021-03-19] MEDS ORDERED: LACTATED RINGER'S 1000 ML IV STA (16:50)
[2021-03-19] MEDS ORDERED: AZITHROMYCIN INJ 500 MG, VIAL MATE ADAPTER 1 EACH in NS 250 ML IV ONE (16:50)
[2021-03-19] MEDS ORDERED: BICITRA 30ML SOLN UDC PO ONE (16:50)
[2021-03-19] MEDS ORDERED: ceFAZolin SOD 2 GM in IV 1 EA IV ONE (17:20)
[2021-03-19] MEDS ORDERED: OXYTOCIN 30 UNITS IN 0.9% NaCl 500ML IV BAG (J2590) As Ordered ONE ×2 (17:50→19:14)
[2021-03-19] MEDS ORDERED: ONDANSETRON 4MG/2ML VIAL As Ordered ONE (17:50)
[2021-03-19] MEDS ORDERED: MORPHINE PRES-FREE INJ 10 MG/10 ML VIAL (J2274) As Ordered ONE (17:50)
[2021-03-19] MEDS ORDERED: LIDOCAINE PRES-FREE 2% 10ML AMP As Ordered ONE (18:13)
[2021-03-19] MEDS ORDERED: NALBUPHINE HCL 10 MG/ML AMP (J2300) IV PRN (18:23)
[2021-03-19] MEDS ORDERED: NALOXONE INJ 0.4MG/1ML VIAL (J2310 PER 1MG) IV PRN ×2 (18:23)
[2021-03-19] MEDS ORDERED: ONDANSETRON 4MG/2ML VIAL IV PRN ×3 (18:23→19:30)
[2021-03-19] MEDS ORDERED: METOCLOPRAMIDE INJ 10MG/2ML VIAL (J2765 PER 1) IV PRN ×2 (18:23→19:30)
[2021-03-19] MEDS ORDERED: diphenhydrAMINE 50MG/ML VIAL (J1200) IV PRN (18:23)
[2021-03-19] MEDS ORDERED: DOCUSATE SODIUM 100MG CAPSULE PO PRN (19:20)
[2021-03-19] MEDS ORDERED: ONDANSETRON 4 MG TAB PO PRN (19:20)
[2021-03-19] MEDS ORDERED: MEASLES,MUMPS,RUBELLA VACCINE INJ (MMR-II) (90707) SC SCH (19:20)
[2021-03-19] MEDS ORDERED: SIMETHICONE 80MG CHEW TAB PO PRN (19:20)
[2021-03-19] MEDS ORDERED: RHOGAM 300 MCG (1500 IU) INJ (J2790) IM SCH (19:20)
[2021-03-19] MEDS ORDERED: oxyCODONE 5MG TAB PO PRN ×2 (19:20→19:30)
[2021-03-19] MEDS ORDERED: PERCOCET 5MG/325MG TAB PO PRN (19:20)
--- NOTE | 2021-03-19 19:23 | ROOPDOC ---
[facility] Report Of Operation Report of Operation DATE OF PROCEDURE: 03/19/21 Report of operation Preoperative diagnosis: 39 weeks, h/o prior shoulder dystocia Postoperative diagnosis: same Procedure: Repeat low transverse section Surgeon: Kendall Trujillo M.D. Asst.: Dannie Nielsen MD EBL: 500 ml. Urine output: 100 mL's. Findings: 7 lbs. 2 oz. female , 's 8 and 9 g normal uterus, fallopian tubes, ovaries. Operative summary: Patient taken to the operating room where spinal anesthesia was induced. She was prepped and draped in a sterile fashion in the supine position. A Mathur catheter was placed. A Pfannenstiel skin incision was made with scalpel. Fascia was incised and extended bilaterally. The peritoneal cavity was entered. A Mobius retractor was placed. A bladder flap was created. A curvilinear incision was made in lower uterine segment until Clear fluid was noted. The incision was extended manually. The was delivered from the vertex position without difficulty. Cord was doubly clamped and cut. The infant was handed to the awaiting nurses. The placenta was expressed. Uterus was closed with O-Vicryl in a running locked fashion. A second imbricating layer of Vicryl was placed. Peritoneum was closed with 2-0 Vicryl in a running fashion. Fascia was closed with 0 Vicryl in running fashion. Skin was closed 4-0 Monocryl subcuticular sutures. Sponge, instrument and needle counts were correct. Dannie Nielsen MD, assisted with all aspects of the procedure. He helped each layer of the incision and deliver the fetus. KENDALL TRUJILLO MD Mar 19, 2021 19:23
[2021-03-19] MEDS ORDERED: MEPERIDINE INJ 25 MG/ML VIAL (J2175) IV PRN (19:30)
[2021-03-19] MEDS ORDERED: fentaNYL 100 MCG/2 ML INJECTION (J3010) IV PRN (19:30)
[2021-03-19] MEDS ORDERED: OXYTOCIN DRIP 30 UNITS in IV 1 EA IV SCH (19:35)
[2021-03-19] MEDS ORDERED: KETOROLAC 30 MG/ML 1ML VIAL As Ordered ONE (19:59)
[2021-03-19] MEDS: KETOROLAC 30 MG/ML 1ML VIAL IV SCH (20:04)
[2021-03-19] MEDS: LR 1,000 ML IV SCH (23:00)
[2021-03-20] VITALS (7 sets, daily range): BP systolic 118–138; BP diastolic 60–78
[2021-03-20] MEDS: KETOROLAC 30 MG/ML 1ML VIAL IV SCH ×3 (01:40→13:48)
[2021-03-20] MEDS: LR 1,000 ML IV SCH (06:00)
--- NOTE | 2021-03-20 07:07 | IPNPDOC ---
Text Note Date of Service The patient was seen on 03/20/21. NOTE PO #1 Feels well. Happy with decision. Had 2 episodes of vomiting last night after drinking too much. Adequate pain management VSS, afebrile,normotensive Breasts soft, nipples intact Fundus firm, NT Dressing dry and intact Lochia rubra light without odor PO #1 Remove borja once tolerating fluids and ambulating well. Routine care. Anticipate D/C in am VS,Fishbone, I+O VS, Fishbone, I+O Laboratory Tests 03/19/21 12:58 Vital Signs Date Time Temp Pulse Resp B/P (MAP) Pulse Ox O2 Delivery O2 Flow Rate FiO2 03/20/21 06:00 97.7 66 18 118/66 (83) 98 Room Air I&O- Last 24 Hours up to 6 AM 03/20/21 06:00 Intake Total 1905 ml Output Total 1375 ml Balance 530 ml Lucila Ruiz CNM Mar 20, 2021 07:07
[2021-03-20 07:08] LABS: HEMATOCRIT 30.9 % (36.0-47.0); HEMOGLOBIN 9.9 g/dl (12.0-15.5); MEAN CORPUSCULAR VOLUME 84.4 fl (80.0-96.0); PLATELET COUNT, AUTOMATED 299 10^3/uL (150-450); RED BLOOD COUNT 3.66 10^6/uL (4.00-5.40); WHITE BLOOD COUNT 9.2 10^3/uL (4.0-10.0)
[2021-03-20] MEDS: PRENATAL VITAMINS CHEWABLE TABLET PO SCH (08:09)
[2021-03-20] MEDS: metFORMIN XR 500MG TAB *GLUCOPHAGE XR PO SCH (09:29)
[2021-03-20] MEDS: IBUPROFEN 800 MG TAB PO SCH (22:28)
[2021-03-21 01:51] VITALS: BP 120/57
[2021-03-21 06:00] VITALS: BP 121/63
[2021-03-21] MEDS: IBUPROFEN 800 MG TAB PO SCH ×2 (06:06→13:47)
[2021-03-21] MEDS ORDERED: OXYC1TAB23 PO (06:22)
[2021-03-21] MEDS ORDERED: IBUP80TA PO (06:22)
--- NOTE | 2021-03-21 06:34 | DS.PDOC ---
Discharge Summary General Date of Admission Mar 19, 2021 at 12:14 Date of Discharge Mar 21, 2021 Discharge Summary PROCEDURES PERFORMED DURING STAY: . ADMITTING DIAGNOSES: 1. 38 6/7 week, gestational diabetes, h/o shoulder dystocia. DISCHARGE DIAGNOSES: 1. same. COMPLICATIONS/CHIEF COMPLAINT: Induction. HISTORY OF PRESENT ILLNESS: 30-year-old 2 para 1 female at 30-6/7 weeks gestation presents for primary section. She has history of gestational diabetes on oral medications. The decision for is based on history of shoulder dystocia with her prior delivery.. HOSPITAL COURSE: Patient was admitted on March 19, 2021. An ultrasound was performed which showed estimated weight in the 7 to 7-1/2 pound range. Patient decided a section to be the safest approach given her prior shoulder dystocia. On March 19, 2021 the patient underwent primary section for a 7 pound 2 ounce male infant. There were no complications. Her postoperative course was unremarkable. She had adequate return of bladder bowel function. She was deemed stable for discharge on postop day #2. DISCHARGE MEDICATIONS: Please see below. ALLERGIES: Please see below. PHYSICAL EXAMINATION ON DISCHARGE: VITAL SIGNS: Please see below. GENERAL: No apparent distress HEENT: Within normal limits CARDIOVASCULAR EXAMINATION: RRR RESPIRATORY EXAMINATION: Clear to auscultation ABDOMINAL EXAMINATION: Nontender fundus firm EXTREMITIES: Nontender LABORATORY DATA: Please see below. PROGNOSIS: Good ACTIVITY: As tolerated. DIET: Regular DISCHARGE PLAN: Discharge home DISPOSITION: . DISCHARGE INSTRUCTIONS: 1. Discharge home 2. Instructions reviewed. 3. Pain management ordered. DISCHARGE CONDITION: Stable. TIME SPENT ON DISCHARGE: Greater than 10 minutes. Vital Signs/I&Os Vital Signs Date Time Temp Pulse Resp B/P (MAP) Pulse Ox O2 Delivery O2 Flow Rate FiO2 03/21/21 06:00 98.7 80 16 121/63 (82) 96 Room Air I&O- Last 24 Hours up to 6 AM 03/21/21 06:00 Output Total 1125 ml Balance -1125 ml Laboratory Data Labs 24H Laboratory Tests 2 03/20/21 06:34: Nucleated Red Blood Cells % (auto) 0.0 CBC/BMP Laboratory Tests 03/20/21 06:34 Discharge Medications Scheduled Ibuprofen (Ibuprofen) 800 Mg Tablet, 800 MG PO Q8H Metformin HCl (Metformin HCl) 500 Mg Tablet, 1,000 MG PO DAILY, (Reported) No.137/Iron/Folic Acd ( Vitamin Tablet) 1 Each Tablet, 1 TAB PO DAILY, (Reported) Scheduled PRN Oxycodone HCl/Acetaminophen (Oxycodone-Acetaminophen 5-325) 1 Each Tablet, 1 TAB PO TIDP PRN for pain Allergies Coded Allergies: SEASONAL ALLERGIES (Verified Allergy, Mild, 03/19/21) KENDALL TRUJILLO MD Mar 21, 2021 06:34
[2021-03-21] MEDS: PRENATAL VITAMINS CHEWABLE TABLET PO SCH (08:11)
[2021-03-21] MEDS: metFORMIN XR 500MG TAB *GLUCOPHAGE XR PO SCH (08:12)
[2021-03-21 17:52] VITALS: BP 137/73
== END 2021-03-21 20:00 | disposition home or self-care (01) | DRG 540 ==
LOC: M LDI 12:14 → M OBS 20:55
PROVIDERS: ADMIT Advanced Practice Midwife; ATTEND Advanced Practice Midwife
PROC: 10D00Z1 Extraction of Products of Conception, Low, Open Approach (ICD-10-PCS; principal; 2021-03-19 17:55)
DX: O24.425 Gestational diabetes mellitus in childbirth, controlled by oral hypoglycemic drugs (principal); O99.824 Streptococcus B carrier state complicating childbirth; Z37.0 Single live birth; Z3A.38 38 weeks gestation of pregnancy

== ENCOUNTER → 2022-05-09 | Outpatient (CLI) | payer BC ==
[~2022-05-09] MED LIST changes: +IBUP80TA PO; +OXYC1TAB23 PO
== END ==
LOC: M WHC 07:24
PROVIDERS: ATTEND Obstetrics & Gynecology
DX: Z34.81 Encounter for supervision of other normal pregnancy, first trimester (principal); Z3A.08 8 weeks gestation of pregnancy

== ENCOUNTER → 2022-05-20 | Outpatient (REF) | LOC: M EMP 10:37 | PROVIDERS: ATTEND Family Medicine | DX: Z11.52 Encounter for screening for COVID-19 (principal) ==

== ENCOUNTER → 2022-06-03 | Outpatient (CLI) | payer BC ==
[2022-06-03 15:01] LABS: BASO % 0.2 % (0.0-1.0); EOS # 0.1 10^3/uL (0.0-0.5); EOS % 0.9 % (0.0-3.0); HEMATOCRIT 36.1 % (36.0-47.0); HEMOGLOBIN 11.7 g/dl (12.0-15.5); LYMPH # 1.9 10^3/uL (1.5-5.0); LYMPH % 21.4 % (24.0-44.0); MEAN CORPUSCULAR HEMOGLOBIN 27.7 pg (27.0-33.0); MEAN CORPUSCULAR HGB CONC 32.4 g/dl (32.0-36.5); MEAN CORPUSCULAR VOLUME 85.5 fl (80.0-96.0); MONO # 0.4 10^3/uL (0.0-0.8); MONO % 4.8 % (2.0-8.0); NEUTROPHILS # 6.4 10^3/uL (1.5-8.5); NEUTROPHILS % 72.4 % (36.0-66.0); PLATELET COUNT, AUTOMATED 296 10^3/uL (150-450); RED BLOOD COUNT 4.22 10^6/uL (4.00-5.40); WHITE BLOOD COUNT 8.8 10^3/uL (4.0-10.0)
[2022-06-03 16:34] LABS: GC DNA AMPLIFICATION NEGATIVE (NEGATIVE)
[2022-06-03 17:27] LABS: GLUCOSE CHALLENGE TEST 1 HOUR 131 MG/DL (LESS THAN 140); HEPATITIS C VIRUS ABY INDEX < 0.0 INDEX (<0.8); HIV 1&2 SCREEN CENTAUR NEGATIVE (NEGATIVE)
== END ==
LOC: M PLALAB 09:17
PROVIDERS: ATTEND Obstetrics & Gynecology
DX: Z34.81 Encounter for supervision of other normal pregnancy, first trimester (principal); Z3A.08 8 weeks gestation of pregnancy

== ENCOUNTER → 2022-06-13 | Outpatient (CLI) | payer BC | LOC: M LAB 08:14 | PROVIDERS: ATTEND Obstetrics & Gynecology | DX: Z34.82 Encounter for supervision of other normal pregnancy, second trimester (principal) ==

== ENCOUNTER → 2022-07-12 | Outpatient (CLI) | payer BC | LOC: M WHC 13:19 | PROVIDERS: ATTEND Obstetrics & Gynecology | DX: Z34.92 Encounter for supervision of normal pregnancy, unspecified, second trimester (principal); Z3A.18 18 weeks gestation of pregnancy ==

== ENCOUNTER → 2022-09-02 | Outpatient (CLI) | payer BC | LOC: M LAB 07:33 | PROVIDERS: ATTEND Obstetrics & Gynecology | DX: Z34.82 Encounter for supervision of other normal pregnancy, second trimester (principal) ==

== ENCOUNTER 2022-09-08 03:39 | Outpatient (CLI) | payer BC ==
[~2022-09-08] VITALS: Ht 160 cm; Wt 105.1 kg
[2022-09-08 04:34] VITALS: BP 133/72
[2022-09-08 06:29] LABS: BASO % 0.3 % (0.0-1.0); EOS % 0.4 % (0.0-3.0); HEMATOCRIT 37.3 % (36.0-47.0); HEMOGLOBIN 12.5 g/dl (12.0-15.5); LYMPH # 1.7 10^3/uL (1.5-5.0); LYMPH % 16.3 % (24.0-44.0); MEAN CORPUSCULAR HEMOGLOBIN 28.5 pg (27.0-33.0); MEAN CORPUSCULAR HGB CONC 33.5 g/dl (32.0-36.5); MEAN CORPUSCULAR VOLUME 85.2 fl (80.0-96.0); MONO # 0.6 10^3/uL (0.0-0.8); MONO % 5.6 % (2.0-8.0); NEUTROPHILS # 8.2 10^3/uL (1.5-8.5); NEUTROPHILS % 76.7 % (36.0-66.0); PLATELET COUNT, AUTOMATED 294 10^3/uL (150-450); RED BLOOD COUNT 4.38 10^6/uL (4.00-5.40); WHITE BLOOD COUNT 10.7 10^3/uL (4.0-10.0)
[2022-09-08 06:40] LABS: INR 0.86; PROTHROMBIN TIME 11.9 SECONDS (12.5-14.5)
[2022-09-08 06:41] LABS: PARTIAL THROMBOPLASTIN TIME 27.7 SECONDS (24.8-34.2)
[2022-09-08 06:52] LABS: THYROID STIMULATING HORMONE 2.952 uIU/ML (0.55-4.78); THYROXINE (T4) 15.4 UG/DL (4.5-10.9)
[2022-09-08 08:47] LABS: HEMOGLOBIN A1c 5.2 % (4.0-6.0)
[2022-09-08 08:48] VITALS: BP 145/82
[2022-09-08 09:08] VITALS: BP 131/72
[2022-09-08 09:24] VITALS: BP 129/90
[2022-09-08] MEDS ORDERED: METHYLERGONOVINE MALEATE 0.2 MG/ML VIAL (J2210) IM PRN (09:35)
[2022-09-08] MEDS ORDERED: IBUPROFEN 800 MG TAB PO PRN (09:35)
[2022-09-08] MEDS ORDERED: OXYTOCIN INJ 10UNITS/ML 1ML VIAL IM PRN (09:35)
[2022-09-08] MEDS ORDERED: RHOGAM 300MCG (1500IU) INJ IM SCH (09:35)
[2022-09-08] MEDS ORDERED: ONDANSETRON 4MG 2ML VIAL IV PRN (09:35)
[2022-09-08] MEDS ORDERED: OXYTOCIN DRIP 30 UNITS in IV 1 EA IV SCH (09:35)
[2022-09-08] MEDS ORDERED: OXYTOCIN DRIP 30 UNITS in IV 1 EA IV PRN (09:35)
[2022-09-08] MEDS ORDERED: ACETAMINOPHEN 500 MG TAB PO PRN (09:35)
[2022-09-08 10:01] VITALS: BP 118/71
[2022-09-09 10:17] LABS: DRVV SCREEN 34.3 SEC
[2022-09-09 10:20] LABS: PTT LUPUS TYPE ANTICOAG SCREEN 0.9 (0-1.2)
[2022-09-10] MEDS ORDERED: MEASLES,MUMPS,RUBELLA VACCINE INJ (MMR-II) SC.IMMUN ONE (09:00)
[2022-09-10 18:07] LABS: ANTI PARVO VIRUS LEVEL IGG 5.4 index (0.0-0.8); ANTI PARVO VIRUS LEVEL IgM 0.2 index (0.0-0.8); BETA-2 GLYCOPROTEIN I ABY IGA <9 (0-25); BETA-2 GLYCOPROTEIN I ABY IGG <9 (0-20); BETA-2 GLYCOPROTEIN I ABY IGM <9 (0-32); CARDIOLIPIN IGA ANTIBODY <9 APL U/mL (0-11); CARDIOLIPIN IGG ANTIBODY <9 GPL U/mL (0-14); CARDIOLIPIN IGM ANTIBODY <9 MPL U/mL (0-12); HERPES ZOSTER, VARICELLA IgG 2513 index (Immune >165); HERPES ZOSTER, VARICELLA IgM <0.91 index (0.00-0.90)
== END 2022-09-08 16:39 | disposition home or self-care (01) ==
LOC: M LDO 03:39 → UNDOADMIN 08:08 → M LDI 08:08 → M LDO 16:39
PROVIDERS: ATTEND Advanced Practice Midwife
DX: O36.4XX0 Maternal care for intrauterine death, not applicable or unspecified (principal); O42.012 Preterm premature rupture of membranes, onset of labor within 24 hours of rupture, second trimester; O34.219 Maternal care for unspecified type scar from previous cesarean delivery; O99.282 Endocrine, nutritional and metabolic diseases complicating pregnancy, second trimester; E28.2 Polycystic ovarian syndrome; Z3A.37 37 weeks gestation of pregnancy; Z37.1 Single stillbirth; Z79.84 Long term (current) use of oral hypoglycemic drugs
CPT/HCPCS: 36415; 76815; 80307; 83036; 84436; 84443; 85025; 85384; 85460; 85610; 85730; 86146; 86147; 86747; 86780; 86787; 86850; 86900; 86901; 87635; 88307; G0378; G0463; J2590; J2790

== ENCOUNTER → 2023-09-13 | Outpatient (REF) ==
[2023-09-13 16:27] LABS: RSV AMPLIFICATION NEGATIVE (NEGATIVE)
== END ==
LOC: M EMP 15:11
PROVIDERS: ATTEND Family Medicine
DX: Z11.52 Encounter for screening for COVID-19 (principal)

== ENCOUNTER → 2024-10-28 | Outpatient (REF) | payer OTHER ==
[~2024-10-28] MED LIST changes: +NORE1TAB73 PO; +THERTAB52 PO
== END ==
LOC: M SFHCWAGY 14:39
PROVIDERS: ATTEND Obstetrics & Gynecology
DX: Z12.4 Encounter for screening for malignant neoplasm of cervix (principal)